=== PATIENT | male | born 1955 | race Caucasian/White ===

== ENCOUNTER 2019-06-05 22:26 | Emergency (ER) | payer OTHER, BC, SELFPAY ==
[2019-06-05 22:27] VITALS: BP 139/93; PULSE 108; RESP 16; TEMP 36.4; O2SAT 98; BMI 31.3
--- NOTE | 2019-06-05 22:57 | ED.DCSUM_ITS ---
- ER Visit Summary Date of Service: 06/05/19 Chief Complaint: Mid left forearm laceration History of Present Illness: The patient is a 64 M history of hypertension. Patient is right-hand dominant. He was working tonight at [employer] and a piece of steel lacerated his mid left forearm on the dorsal side. This occurred about an hour ago. States his tetanus is up-to-date. No other injuries. No weakness or numbness to his hand. Physical Examination: Older male no acute distress vital signs stable afebrile. H EENT exam unremarkable. Lungs clear to auscultation. Heart regular rhythm no murmur. Chest were nontender. Abdomen soft nontender. All 4 extremities are neurovascular intact. Normal range of motion. The mid left forearm on the dorsal side has about a 4 cm laceration. Involves the skin and subcu tissue. There is a very small injury to the extensor forearm muscle. Mild oozing of blood. No pulsatile bleeding. No tendon injury. No foreign body. Distally the left hand has full flexion-extension he is able to open and close it without any difficulty. Is a normal radial pulse. 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 Normal sensation. Test Results: None Emergency Department Course and Treatment: Left mid forearm laceration with ER repair of her centimeters. Area locally anesthetized with lidocaine. Cleaned with Shur-Clens. Washed with saline. Irrigated. Explored. Closed using 4 simple interrupted 4-0 Ethilon sutures. Proper hemostasis wound closure was obtained. Patient tolerated procedure well. Was instructed on wound care. Treatment Plan: Wound care. Suture removal 7 to 10 days. Follow-up with [facility] return if any signs of infection, swelling or left hand numbness or weakness. Disposition: Discharge Impression: Left forearm laceration with ER repair Worker's Comp. injury This note was generated with [employer] dictation software. It may contain incorrect words, spelling, and punctuation that were not noted in review of the chart prior to signing
--- NOTE | 2019-06-05 23:00 | ED.DEP ---
ED Disposition - Plan for ED Patient: Disposition: Home or Assisted Living Instructions: LACERATION, Extrem (Suture, Staple or Tape) Referrals: [facility] [GROUP OF PHYSICIANS] - 10 Day for suture removal Additional Instructions: Wound care. Plan advised ointment daily. Clean with soap and water or peroxide and water daily. Tylenol for pain. Return to the signs of infection such as significant redness, pus or red streaks or fever. Suture removal in 10 days.
[2019-06-05 23:27] VITALS: RESP 16
== END 2019-06-05 23:28 | disposition home or self-care (01) ==
LOC: ED 23:21
PROVIDERS: Emergency Provider Emergency Medicine; PCP Student in an Organized Health Care Education/Training Program
DX: S51.812A Laceration without foreign body of left forearm, initial encounter (principal); Y28.9XXA Contact with unspecified sharp object, undetermined intent, initial encounter; I10 Essential (primary) hypertension; Z79.899 Other long term (current) drug therapy
CPT/HCPCS: 12002; 99283

== ENCOUNTER 2019-06-14 16:28 | Emergency (ER) | payer BC, SELFPAY ==
[2019-06-14 16:29] VITALS: BP 157/110; PULSE 114; RESP 18; TEMP 36.8; O2SAT 94
--- NOTE | 2019-06-14 17:14 | ED.DCSUM_ITS ---
- ER Visit Summary Date of Service: 06/14/19 Chief Complaint: Rash History of Present Illness: The patient is a [address] Cochran. He has a rash to the right side of his chin that began 2 days ago. States is very painful. Reports it is a burning pain is 10-10 at worst and 6 out of 10 currently. He also complains of pain in his right ear that is been present for 2 days. Patient reports that 3 weeks ago he had a dental infection and was placed on antibiotics the name of which she does not know for 10 days. States he only took it once a day. States that this did resolve. He was seen at the urgent care and was told that he had cold sores and was given acyclovir ointment. Patient denies any dental pain. He denies any constitutional symptoms. No fever, chills, nausea, vomiting, or headache. Physical Examination: Vitals: Stable. Afebrile. General: Well-nourished and well-developed. Head: Normocephalic atraumatic. HEENT: No pain with percussion of his teeth. He does have thrush on his tongue and scattered lesions on the roof of his mouth. Neck: Supple, no lymphadenopathy. No JVD. Nontender. Cardiovascular: Regular rate and rhythm. No murmurs. Respiratory: No respiratory distress. Clear to auscultation bilaterally. Abdominal: Soft, nontender, nondistended, normal bowel sounds. No guarding, rebound, or peritoneal signs. Back: Nontender. Extremities: Nontender, no edema. Skin: Multiple vesicular lesions in a V3 distribution on the right consistent with herpes zoster. There is no Patterson sign. He does not have conjunctival injection to suggest involvement of his eye. He does have lesions on his ear. There is no evidence of Russ Linder.. Neurologic: Alert and oriented ?3. Cranial nerves II through XII are intact. Normal strength and sensation. Psych: Normal affect. Emergency Department Course and Treatment: Patient was treated with acyclovir and Percocet. I did not give him prednisone due to the thrush on his tongue. Treatment Plan: Patient will be discharged with acyclovir and Percocet. He is given nystatin for thrush. Did discuss the risk of developing postherpetic neuralgia. Instructed to follow-up with his primary care physician in 3 to 5 days if not improving. Return to the emergency department for any worsening symptoms. Disposition: To home in improved and stable condition. Impression: 1. Herpes zoster cranial nerve V a third branch on the right. 2. Thrush. This note was generated with [employer] dictation software. It may contain incorrect words, spelling, and punctuation that were not noted in review of the chart prior to signing ED Disposition - Plan for ED Patient: Disposition: Home or Assisted Living Instructions: Shingles (Herpes Zoster) Prescriptions: Nystatin 500,000U/5ML [Mycostatin] 6 ml PO 4X/DAY #100 ml Prescription Printed Oxycodone HCl/Acetaminophen [Percocet 5/325] 1 tab PO Q6H PRN PRN 5 Days #20 tab PRN Reason: Pain Score 6-10/10 Prescription Printed Acyclovir [Zovirax] 800 mg PO 5X/DAY #50 tab Prescription Printed Referrals: Aleks Cochran DO [Primary Care Provider] - 1 Week if not improving
[2019-06-14] MEDS: oxyCODONE 5 MG Tablet 10 MG PO (17:30)
[2019-06-14] MEDS: Acyclovir 800 MG Tablet PO (17:31)
== END 2019-06-14 17:34 | disposition home or self-care (01) ==
LOC: ED 17:23
PROVIDERS: Emergency Provider Emergency Medicine; PCP Student in an Organized Health Care Education/Training Program
DX: B02.9 Zoster without complications (principal); B37.0 Candidal stomatitis
CPT/HCPCS: 99283